=== PATIENT | female | born 1970 | race Hispanic/Latino ===

== ENCOUNTER 2022-07-27 18:40 | Emergency (ER) | payer OTHER, SELFPAY ==
[~2022-07-27 18:40] MED LIST: Ibuprofen 800 MG TAB ONE
== END 2022-07-27 19:15 | disposition home or self-care (01) ==
LOC: BURERS 18:40
DX: S30.1XXA Contusion of abdominal wall, initial encounter (principal); S70.11XA Contusion of right thigh, initial encounter; V59.9XXA Occupant (driver) (passenger) of pick-up truck or van injured in unspecified traffic accident, initial encounter
CPT/HCPCS: 99283